=== PATIENT | female | born 1975 | race Caucasian/White ===

== ENCOUNTER 2016-11-27 21:46 | Emergency (ER) | payer BC, MEDICAID, OTHER ==
[~2016-11-27] VITALS: Ht 165.1 cm; Wt 95.4 kg
[2016-11-27 21:49] VITALS: BP 156/96
[2016-11-27] MEDS ORDERED: TETRACAINE 0.5% OPHTH SOLN 4ML OS ONE (22:00)
[2016-11-27] MEDS ORDERED: FLUORESCEIN OPHTH 1 MG STRIP As Ordered ONE (22:05)
[2016-11-27] MEDS ORDERED: FLUORESCEIN OPHTH 1 MG STRIP OS ONE (22:15)
[2016-11-27] MEDS ORDERED: CIPROFLOXACIN 0.3% OPHTH SOLN 2.5ML OD ONE (22:45)
[2016-11-27] MEDS ORDERED: CIPROFLOXACIN 0.3% OPHTH OINTMENT OD ONE (22:45)
[2016-11-27] MEDS ORDERED: GATIFLOXACIN 0.5% 2.5ML OPHTH SOL OD ONE (22:45)
[2016-11-27] MEDS ORDERED: OXYCODONE/APAP 5MG/325MG(BULK FOR ED) 1 TABLET PO ONE (23:15)
== END 2016-11-27 23:15 | disposition home or self-care (01) ==
LOC: M ED 21:46
DX: H16.011 Central corneal ulcer, right eye (principal); F17.200 Nicotine dependence, unspecified, uncomplicated; Z88.0 Allergy status to penicillin; Z88.2 Allergy status to sulfonamides; Z88.1 Allergy status to other antibiotic agents